=== PATIENT | female | born 1995 | race Caucasian/White ===

== ENCOUNTER 2017-06-05 21:09 | Emergency (ER) | payer SELFPAY ==
[~2017-06-05] VITALS: Ht 162.6 cm; Wt 78.0 kg
[~2017-06-05 21:09] MED LIST: IBUP-1542 PO; METO10TA92 PO; NITR-58 PO
[2017-06-05 21:20] VITALS: Ht 162.6 cm; Wt 78.0 kg
[2017-06-05] MEDS ORDERED: KETOROLAC 15 MG INJ IM STA (22:19)
--- NOTE | 2017-06-05 22:19 | ERD ---
ER Documentation Chief Complaint Chief Complaint bib self, cc: bilateral foot pain s/p fall last HPI This 22-year-old female presents to emergency department with bilateral feet pain after jumping off a fence 8 feet high, pt reports the pain is worse now than 5 days ago. Patient denies hitting her head or any other injury. Patient reports pain with ambulating predominantly bilateral heels and instep. ROS All systems reviewed and are negative except as per history of present illness. Medications Home Meds Active Scripts Nitrofurantoin Monohyd Macrocr* (Macrobid*) 100 Mg Capsr, 100 MG PO BID for 7 Days, CAP Prov:KATELYN RIVER PA-C 08/14/16 Metoclopramide* (Reglan*) 10 Mg Tablet, 10 MG PO Q6 Y for NAUSEA AND/OR VOMITING , #15 TAB Prov:KATELYN RIVER PA-C 08/14/16 Ibuprofen* (Ibuprofen*) 600 Mg Tablet, 600 MG PO Q6 for 10 Days, TAB Prov:DENICE ZEE NP 12/20/15 Allergies Allergies: Coded Allergies: No Known Allergy (Unverified , 12/20/15) PMhx/Soc History of Surgery: No Anesthesia Reaction: No Hx Neurological Disorder: No Hx Respiratory Disorders: No Hx Cardiac Disorders: No Hx Psychiatric Problems: No Hx Miscellaneous Medical Probl: No Hx Alcohol Use: No Hx Substance Use: No Hx Tobacco Use: No Physical Exam Vitals Vital Signs Date Time Temp Pulse Resp B/P Pulse Ox O2 Delivery O2 Flow Rate FiO2 06/05/17 21:20 98.5 82 19 126/81 100 Vitals stable, triage notes reviewed Physical Exam Const: Well-nourished well-appearing well-hydrated age-appropriate 22-year- old in no acute distress Head: Eyes: ENT: Neck: Resp: Cardio: Abd: Skin: No petechiae or rashes Back: Ext: Lower Extremity - bilateral feet: Skin: No laceration, abrasion, ecchymosis, dryness, plantars wart or fissure Compartments: Soft Motor: Full active range of motion hip/knee/ankle/foot Sensation: Intact to light touch anterior, superior, and lateral surfaces Bones: [Nontender pelvis/knee/proximal tibia/ malleoli, bilateral calcaneal tenderness, Joints: No effusion or laxity Pulses/Perfusion: 2+ DP, Capillary refill < 2 seconds Neur: Awake and alert Psych: Normal Mood and Affect Results 24 hrs Current Medications Medications (Trade) Dose Ordered Sig/Kusum Route PRN Reason Start Time Stop Time Status Last Admin Dose Admin Ketorolac Tromethamine (Toradol) 15 mg ONCE STAT IM 06/05/17 22:19 06/05/17 22:22 DC 06/05/17 22:45 Procedures/MDM This pleasant 22-year-old female presents to emergency department for evaluation of heel pain, patient reports she jumped off of a 8 foot fence down to the ground and has had bilateral heel pain ever since. Pain has worsened over the last week, patient reports no obvious bruising, patient denies any other injury, denies hitting her head, area rolling her ankle. Emergency room course today includes history and physical exam positive for calcaneal tenderness bilaterally, x-ray for a suspicion of chip fracture versus plantar fasciitis, radiologist evaluation is unremarkable bilateral foot series. Mineralization is within normal limits with no fracture or osseous lesion identified. There is no evidence of dislocation joint spaces are preserved the soft tissues are unremarkable there is no evidence of radial opaque foreign body. Plan to discharge patient home with Naprosyn 1 tab p.o. twice daily 10 days, instructed to use [id number] heel cushions or Dr. Castillo's insert, to avoid high heels, for the next 10 days follow-up with primary physician if symptoms fail to improve as anticipated. Patient is stable with no new complaints during ER course, clinically there is no current evidence to suggest fracture Lisfranc sprain, fracture, avulsion fracture, tendinitis, compartment syndrome, osteomyelitis or any other emergent condition appearing to require further evaluation or hospitalization. I feel the patient is stable for discharge at this time. I have discussed results, examination findings, the treatment plan with the patient and family present prior to discharge. Indications for emergent reevaluation, side effects of medication were also discussed. All questions were answered. Patient verbalizes understanding and agrees with plan of care. Departure Diagnosis: Primary Impression: Contusion of foot or heel Encounter type: initial encounter Laterality: unspecified laterality Qualified Code: S90.30XA - Contusion of foot or heel, unspecified laterality, initial encounter Condition: Good Patient Instructions: Contusion, Foot Referrals: [facility] Additional Instructions: Thank you for for coming to [facility] for your care today. Please ask your nurse or provider if you have questions about your care today and do not leave until all your questions have been answered. Please use any medications given as directed and follow-up with your doctor (or the doctor you were referred to) in the next 2-3 days. If you do not have a primary care doctor you may follow up at the [facility] (listed below). You may also use motrin and tylenol as needed for fever and/or pain unless instructed otherwise by your provider or nurse. Indications for more urgent follow-up have been discussed, but you may return to the Emergency Department at ANY time for any worrisome or worsening symptoms. If you have abdominal pain, please know that no test or exam you received is perfect and you should follow up within 8 hours for continued pain. If you had any imaging studies today, such as an X-Ray or CT Scan, these studies will be reviewed later by a radiologist. You will be called if there are important findings that were not identified today, so make sure the contact information you provided at registration is correct. If you received any narcotic pain control medicine today, such as Vicodin, Morphine or Dilaudid, your coordination and judgment may be affected for a number of hours. Please do not drive or operate heavy machinery, and you may want someone to assist you at home. If you were given a prescription for narcotic medication, be aware that it is very addictive- use sparingly and only if necessary. AURY ZIEGLER Jun 05, 2017 22:19
--- NOTE | 2017-06-06 00:23 | RADRPT ---
PROCEDURE: XR right foot. CLINICAL INDICATION: Bilateral foot and heel pain TECHNIQUE: AP, lateral and oblique views of the right and left foot were obtained, a total of 6 im ages submitted to the PACS for review. COMPARISON: None. FINDINGS: Mineralization is within normal limits. No fracture or osseous lesion is identified. There is no e vidence for dislocation. Joint spaces are preserved. The soft tissues are unremarkable. There is n o evidence for radiopaque foreign body. RPTAT:HJJR IMPRESSION: Unremarkable bilateral foot series. Physician Maritza Date Time Electronically viewed and signed by Physician Maritza on 06/06/2017 00:23 /
[2017-06-06] MEDS ORDERED: NAPR-260 PO (01:20)
== END 2017-06-06 01:25 | disposition home or self-care (01) ==
LOC: FTE 21:09
DX: S90.30XA Contusion of unspecified foot, initial encounter (principal); W17.89XA Other fall from one level to another, initial encounter; Y92.9 Unspecified place or not applicable
CPT/HCPCS: 73630; 96372; 99284; J1885